=== PATIENT | male | born 1935 ===

== ENCOUNTER 2017-03-21 08:14 | Emergency (ER) | payer OTHER ==
[2017-03-21 08:28] VITALS: BP 140/59
--- NOTE | 2017-03-21 08:47 | UC ---
Bite Injury/Animal HPI - HPI Summary HPI Summary: 81 yo male was bitten by his sons Mo Louie last night about 12:30 AM on the left hand He was trying to undo a lease and the dog nipped at him he is on plavix and one of the bites continues to ooze he his right handed Td reportedly UTD - History of Current Complaint Chief Complaint: UCBiteInjury Stated Complaint: HAND LAC Time Seen by Provider: 03/21/17 08:31 Hx Obtained From: Patient, Workers Compensation Claims Adjuster - daughter in law Severity Currently: Mild Severity Initially: Moderate Pain Intensity: 2 Pain Scale Used: 0-10 Numeric Onset/Duration: Sudden Onset, Lasting Hours Type of Bite: Pet Has Animal Been Immunized?: Yes Character: Puncture, Full-Thickness, Abrasion/Laceration Aggravating Factor(s): Nothing Alleviating Factor(s): Nothing Associated Signs And Symptoms: Positive: Swelling Hx of Bite: Provoked by: - grabbing for collar Animal Available for Observation: Yes Animal Control Notified: Yes - Allergies/Home Medications Allergies/Adverse Reactions: Allergies Allergy/AdvReac Type Severity Reaction Status Date / Time No Known Allergies Allergy Verified 03/21/17 08:28 Home Medications: Home Medications Amoxicillin PO (*) [Amoxicillin 500 MG CAP*] 1,000 mg PO ONCE 03/21/17 [History Confirmed 03/21/17] Clopidogrel TAB* [Plavix TAB*] 75 mg PO DAILY 03/21/17 [History Confirmed ] Metoprolol Tartrate TAB* [Lopressor TAB*] 25 mg PO DAILY 03/21/17 [History Confirmed 03/21/17] PMH/Surg Hx/FS Hx/Imm Hx Previously Healthy: Yes Cardiovascular History: Cardiac Disease Cancer History: Colorectal Cancer - Surgical History Surgical History: Yes Surgery Procedure, Year, and Place: 2 cardiac stents, colon-most of Lrg intestine removed d/t tumor - Family History Known Family History: Positive: Cardiac Disease, Hypertension - Social History Alcohol Use: None Substance Use Type: None Smoking Status (MU): Never Smoked Tobacco - Immunization History Most Recent Tetanus Shot: unknown Review of Systems Constitutional: Negative Skin: Negative Eyes: Negative ENT: Negative Respiratory: Negative Cardiovascular: Negative Gastrointestinal: Negative Genitourinary: Negative Motor: Negative Neurovascular: Negative Musculoskeletal: Negative Neurological: Negative Psychological: Negative All Other Systems Reviewed And Are Negative: Yes Physical Exam Triage Information Reviewed: Yes Appearance: Well-Appearing, No Pain Distress, Well-Nourished, Thin Vital Signs: Initial Vital Signs Temp 98.2 F 03/21/17 08:16 Pulse 43 03/21/17 08:16 Resp 14 03/21/17 08:16 BP 140/59 03/21/17 08:16 Pulse Ox 100 03/21/17 08:16 Vital Signs Reviewed: Yes Eyes: Positive: Conjunctiva Clear ENT: Positive: Hearing grossly normal. Negative: Nasal congestion, Nasal drainage, Trismus, Muffled/hoarse voice Neck: Positive: Supple, Nontender Respiratory: Positive: Lungs clear, Normal breath sounds, No respiratory distress, No accessory muscle use Cardiovascular: Positive: RRR, No Murmur, Bradycardia Musculoskeletal: Positive: Other: - see image Skin Exam: Other - see image Bite Injury Course/Dx - Differential Dx/Diagnosis Provider Diagnoses: dog bite left hand Discharge - Discharge Plan Condition: Stable Disposition: HOME Prescriptions: Amoxicillin/Clavulanate TAB* [Augmentin TAB 875*] 875 mg PO BID #14 tab Patient Education Materials: Animal Bite (ED) Referrals: No Primary Care Phys,NOPCP [Primary Care Provider] - Additional Instructions: This should be rechecked tomorrow If unable to get in to see your MD return here gently clean 2-3 x day with soap and water apply thin film of bactroban oint dressing recheck for concerns of infection this needs to be followed closely as it will take a long time to heal and it is as risk of infection Images Hands: 1 - 2 pw's with dorsal hand edema/ecchymosis 2 - v shaped flap laceration/tear. 2 cm long, 1 -2 mm deep, 5 mm wide 3 - PW
--- NOTE | 2017-03-21 09:02 | RAD ---
Indication: Dog bite, left hand injury. 4 views of left hand demonstrates no evidence of fracture. No evidence of radiopaque foreign body is identified. No other bone or joint abnormality is noted. IMPRESSION: No fracture of the left hand is noted.
[2017-03-21] MEDS ORDERED: Mupirocin 2% OINT* TUBE TOPICAL ONE (09:20)
== END 2017-03-21 09:41 | disposition home or self-care (01) ==
LOC: UCEAST 08:14
DX: I51.9 Heart disease, unspecified (principal); S61.412A Laceration without foreign body of left hand, initial encounter; W54.0XXA Bitten by dog, initial encounter; Y93.89 Activity, other specified; Y92.009 Unspecified place in unspecified non-institutional (private) residence as the place of occurrence of the external cause; Y99.9 Unspecified external cause status
CPT/HCPCS: 99213; G0463

== ENCOUNTER 2018-10-07 15:48 | Emergency (ER) | payer OTHER ==
--- NOTE | 2018-10-07 17:04 | ED ---
Complex/Multi-Sys Presentation - HPI Summary HPI Summary: This pt is an 83 y/o [facility] after blood work showed low hemoglobin and hematocrit. Daughter in law reports pt had a routine visit with his PCP yesterday who noticed he was very pale and had blood drawn yesterday. Per daughter in law, pt sees his PCP every 3 months. Daughter in law notes pt has recently been sleeping more than usual, with low energy, and generalized weakness. Additionally pt has swelling in legs, has been constipated , and had blood in his stool described as a small amount. Pt has been eating normally, which is not much. Denies chest pain, vomiting, abd pain, SOB. Per daughter in law pt ambulates up and down the stairs without noticeable SOB. PMHx: colon CA s/p colon removal in 2000, cardiac stents x2. Pt is on plavix and metoprolol. Pt's PCP prescribed him on lasix yesterday. Pt lives with family. - History Of Current Complaint Chief Complaint: EDGeneral Time Seen by Provider: 10/07/18 16:54 Hx Obtained From: Patient, Family/Manager Play - daughter in law Onset/Duration: Lasting Days, Still Present Timing: Days Severity Currently: Moderate Location: Negative Aggravating Factor(s): nothing Alleviating Factor(s): nothing Associated Signs And Symptoms: Positive: Weakness - generalized, Edema - in LE, Other - POS: fatigue, low energy, pale. Negative: SOB, Chest Pain, Vomiting, Abdominal Pain, Fever - Allergies/Home Medications Allergies/Adverse Reactions: Allergies Allergy/AdvReac Type Severity Reaction Status Date / Time No Known Allergies Allergy Verified 10/07/18 15:53 Home Medications: Home Medications Furosemide 20 mg PO DAILY 10/07/18 [History Confirmed 10/07/18] PMH/Surg Hx/FS Hx/Imm Hx Endocrine/Hematology History: Denies: Hx Diabetes Cardiovascular History: Reports: Hx Coronary Artery Disease, Hx Hypertension - Cancer History Cancer Type, Location and Year: Colon CA - Surgical History Surgery Procedure, Year, and Place: 2 cardiac stents, colon-most of Lrg intestine removed d/t tumor Infectious Disease History: No Infectious Disease History: Denies: Traveled Outside the [place] in Last 30 Days - Family History Known Family History: Positive: Cardiac Disease, Hypertension - Social History Alcohol Use: None Substance Use Type: Reports: None Smoking Status (MU): Never Smoked Tobacco Review of Systems Positive: Fatigue. Negative: Fever Negative: Chest Pain Negative: Shortness Of Breath Gastrointestinal: Other - POS: blood in stool, constipation Negative: Vomiting, Nausea Positive: Edema - in LE Skin: Other - POS: pale Positive: Weakness - generalized All Other Systems Reviewed And Are Negative: Yes Physical Exam - Summary Physical Exam Summary: Appearance: Well-nourished, Pale elderly male. No acute distress Skin: Warm, dry, no obvious rash. Pale. Eyes: sclera anicteric, no conjunctival pallor ENT: mucous membranes moist, pharynx appears normal Neck: Supple, nontender Respiratory: Clear to auscultation, no signs of respiratory distress Cardiovascular: Normal S1, S2. No murmurs. Normal distal pulses in tibial and radial bilaterally. Abdomen: Soft, nontender, normal active bowel sounds present Musculoskeletal: Normal, Strength/ROM Intact Rectal Exam: limited exam as pt was very tight Neurological: A&Ox3, awake and alert, mentation is normal, speech is fluent and appropriate Psychiatric: affect is normal, does not appear anxious or depressed Triage Information Reviewed: Yes Vital Signs On Initial Exam: Initial Vitals Temp Pulse Resp BP Pulse Ox 97.9 F 85 16 139/84 100 10/07/18 15:49 10/07/18 15:49 10/07/18 15:49 10/07/18 15:49 10/07/18 15:49 Vital Signs Reviewed: Yes Diagnostics - Vital Signs Vital Signs Temp Pulse Resp BP Pulse Ox 10/07/18 16:45 70 20 137/59 100 10/07/18 15:49 97.9 F 85 16 139/84 100 - Laboratory Result Diagrams: 10/07/18 17:13 10/07/18 17:13 Lab Statement: Any lab studies that have been ordered have been reviewed, and results considered in the medical decision making process. Complex Multi-Symp Course/Dx Assessment/Plan: Pt is an 83 y/o male who presents to the ED after being referred by PCP after blood work showed low H&H. Pt saw PCP yesterday who noticed he was very pale and had blood drawn. Daughter in law notes pt has recently been sleeping more than usual, with low energy, and generalized weakness. Additionally pt has swelling in legs, has been constipated, and had blood in his stool described as a small amount. Labs from yesterday show hemoglobin of 6.1 and hematocrit of 20. Today's labs show hemoglobin of 5.7, hematocrit of 18. Pt has been arranged to have blood transfusion tomorrow at the transfusion center at noon. Family and pt are aware of the plan. Pt will be discharged home and is instructed to follow up with his PCP. Family and pt agree and understand. - Diagnoses Provider Diagnoses: Anemia - Physician Notifications Discussed Care Of Patient With: Lemuel Henriquez Time Discussed With Above Provider: 17:12 Instructed by Provider To: Other - Discussed pt care with Dr. Henriquez, PCP, who reports can be transfused tomorrow at the transfusion center. Discharge - Sign-Out/Discharge Documenting (check all that apply): Patient Departure - Discharge home Patient Received Moderate/Deep Sedation with Procedure: No - Discharge Plan Condition: Good Disposition: HOME Patient Education Materials: Anemia (ED) Referrals: Lemuel Henriquez MD [Primary Care Provider] - Additional Instructions: We have arranged to have your transfusion of blood done here at the infusion center within the hospital. You are scheduled for noon, so if you could come 15 minutes early to do the checkin process that would help. You can come to the main hospital entrance and tell the attendant that you are here for a transfusion at the infusion center and they will direct you. Your blood count did not change significantly from the one done yesterday. I also alerted your primary doctor as to our plans to have you transfused, you will still need to followup with them for further testing to find out why you became so anemic. - Billing Disposition and Condition Condition: GOOD Disposition: Home - Attestation Statements Document Initiated by Laila: Yes Documenting Scribe: Gale Francis Provider For Whom Laila is Documenting (Include Credential): Glenn Marte MD Scribe Attestation: I, Gale Francis, scribed for Glenn Marte MD on 10/07/18 at 1958. Scribe Documentation Reviewed: Yes Provider Attestation: The documentation as recorded by the Gale magallanes accurately reflects the service I personally performed and the decisions made by me, Glenn Marte MD Status of Scribe Document: Viewed
[2018-10-07 17:29] LABS: INR 0.96 (0.77-1.02)
[2018-10-07 17:34] LABS: Hematocrit 18 % (42-52); Hemoglobin 5.7 g/dl (14.0-18.0); Mean Corpuscular HGB Conc 31 g/dl (31-36); Mean Corpuscular Hemoglobin 22 pg (27-31); Mean Corpuscular Volume 71 fL (80-94); Platelet Count 258 10^3/ul (150-450); Red Blood Count 2.59 10^6/ul (4.00-5.40); Red Cell Distribution Width 17 % (10.5-15); White Blood Count 5.3 10^3/ul (3.5-10.8)
[2018-10-07 17:37] LABS: Albumin 3.5 g/dL (3.2-5.2); Albumin/Globulin Ratio 1.1 (1-3); BUN/Creatinine Ratio 11.9 (8-20); Calcium 8.6 mg/dL (8.6-10.3); EGFR Non-African American 33.1 (>60); Globulin 3.2 g/dL (2-4); Potassium 4.7 mmol/L (3.5-5.0); Total Bilirubin 0.3 mg/dL (0.2-1.0); Total Protein 6.7 g/dL (6.4-8.9)
[2018-10-07 18:07] LABS: ABS Basophils 0.1 10^3/ul (0-0.2); ABS Eosinophils 0.2 10^3/ul (0-0.6); ABS Lymphocytes 2.2 10^3/ul (1.0-4.8); ABS Monocytes 0.3 10^3/ul (0-0.8); ABS Neutrophils 2.5 10^3/ul (1.5-7.7); ABS Nucleated RBC 0 10^3/ul; Lymphocyte % 40.8 %; Nucleated Red Blood Cells % 0.2
[2018-10-07 18:21] VITALS: BP 132/47
== END 2018-10-07 18:23 | disposition home or self-care (01) ==
LOC: ED 15:48
DX: D64.9 Anemia, unspecified (principal); R60.0 Localized edema; K92.1 Melena; K59.00 Constipation, unspecified; I25.10 Atherosclerotic heart disease of native coronary artery without angina pectoris; I10 Essential (primary) hypertension; Z95.5 Presence of coronary angioplasty implant and graft; Z85.038 Personal history of other malignant neoplasm of large intestine
CPT/HCPCS: 36415; 80053; 82270; 85025; 85060; 85610; 86850; 86900; 86901; 86922; 99283; P9040

== ENCOUNTER 2018-11-19 18:00 | Emergency (ER) | payer OTHER ==
[2018-11-19 18:19] VITALS: BP 138/71
--- NOTE | 2018-11-19 19:13 | UC ---
Minor Trauma HPI - HPI Summary HPI Summary: Mr. Bennett slipped on the wet grass this AM wearing his slippers and sustained an abrasion to his left knee, a skin tear to his left forearm and a bruise to his left forehead at about 11:30 this AM. He did not lose consciousness or get a headache. He is on a blood thinner. He is brought in by his daughter concerned about the skin tear. - History of Current Complaint Chief Complaint: UCGeneralIllness Stated Complaint: ARM INJURY Time Seen by Provider: 11/19/18 19:00 Hx Obtained From: Patient, Family/Flight Teacher Onset/Duration: Sudden Onset Onset Of Pain: Immediate Severity Initially: Mild Severity Currently: Mild Pain Intensity: 1 Mechanism Of Injury: Fall From A Standing Position Aggravating Factor(s): Nothing Alleviating Factor(s): Nothing Associated Signs And Symptoms: Negative: Loss Of Consciousness - Allergies/Home Medications Allergies/Adverse Reactions: Allergies Allergy/AdvReac Type Severity Reaction Status Date / Time No Known Allergies Allergy Verified 11/19/18 18:19 PMH/Surg Hx/FS Hx/Imm Hx Previously Healthy: Yes - Surgical History Surgical History: Yes Surgery Procedure, Year, and Place: 2 cardiac stents, colon-most of Lrg intestine removed d/t tumor - Family History Known Family History: Positive: Cardiac Disease, Hypertension - Social History Alcohol Use: None Substance Use Type: None Smoking Status (MU): Never Smoked Tobacco - Immunization History Most Recent Tetanus Shot: unknown Review of Systems All Other Systems Reviewed And Are Negative: Yes Physical Exam - Summary Physical Exam Summary: He was nontoxic in appearance with stable vitals/ Triage Information Reviewed: Yes Appearance: Well-Appearing, No Pain Distress Vital Signs: Initial Vital Signs Temp 98.9 F 11/19/18 18:12 Pulse 81 11/19/18 18:12 Resp 18 11/19/18 18:12 BP 138/71 11/19/18 18:12 Pulse Ox 100 11/19/18 18:12 Vital Signs Reviewed: Yes Eye Exam: Normal ENT Exam: Other - small bruise to left forehead Neck exam: Normal Respiratory: Positive: Chest non-tender, Lungs clear Cardiovascular: Positive: RRR Abdominal Exam: Normal Abdomen Description: Positive: Nontender Musculoskeletal Exam: Other - abrasion to left knee without much swelling or tenderness and no decrease in ROM Musculoskeletal: Positive: Other: - Left proximal forearm with a skin tear of 4 cm by 4cm. Neurological Exam: Normal Minor Trauma Course/Dx - Course Course Of Treatment: The dkin of his forearm tear was debrided by nursing staff and he has no evidence for any serious injury. - Differential Dx/Diagnosis Provider Diagnosis: Head injury, Skin tear of forearm without complication, Abrasion hip/leg Discharge - Sign-Out/Discharge Documenting (check all that apply): Patient Departure All imaging exams completed and their final reports reviewed: Yes - Discharge Plan Condition: Stable Disposition: HOME Patient Education Materials: Head Injury (ED), Skin Tear (ED) Referrals: Izzy Colorado MD [Primary Care Provider] - - Billing Disposition and Condition Condition: STABLE Disposition: Home
== END 2018-11-19 19:45 | disposition home or self-care (01) ==
LOC: UCEAST 18:00
DX: S09.90XA Unspecified injury of head, initial encounter (principal); S51.812A Laceration without foreign body of left forearm, initial encounter; S80.212A Abrasion, left knee, initial encounter; W01.0XXA Fall on same level from slipping, tripping and stumbling without subsequent striking against object, initial encounter; Y93.01 Activity, walking, marching and hiking; Y92.89 Other specified places as the place of occurrence of the external cause; Z79.01 Long term (current) use of anticoagulants; Z95.5 Presence of coronary angioplasty implant and graft
CPT/HCPCS: 99212; G0463

== ENCOUNTER 2020-03-05 13:30 | Observation (INO) ==
[2020-03-05 14:46] LABS: ABS Eosinophils 0.2 10^3/ul (0-0.6); ABS Lymphocytes 1.7 10^3/ul (1.0-4.8); ABS Monocytes 0.3 10^3/ul (0-0.8); Eosinophil % 5.5 %; Hematocrit 24 % (42-52); Hemoglobin 8.1 g/dL (14.0-18.0); Lymphocyte % 46.9 %; Mean Corpuscular HGB Conc 34 g/dL (31-36); Mean Corpuscular Hemoglobin 28 pg (27-31); Mean Corpuscular Volume 84 fL (80-94); Mean Platelet Volume 6.7 fL (7.4-10.4); Nucleated Red Blood Cells % 0.1; Platelet Count 406 10^3/uL (150-450); Red Blood Count 2.88 10^6 /uL (4.18-5.48); Red Cell Distribution Width 15 % (10-15); White Blood Count 3.7 10^3/uL (3.5-10.8)
[2020-03-05 14:57] LABS: INR 1.06 (0.82-1.09)
[2020-03-05 15:03] LABS: Albumin 2.9 g/dL (3.2-5.2); Albumin/Globulin Ratio 0.8 (1-3); BUN/Creatinine Ratio 9.8 (8-20); Calcium 8.2 mg/dL (8.6-10.3); EGFR African American 56.7 (>60); EGFR Non-African American 46.9 (>60); Globulin 3.5 g/dL (2-4); Potassium 3.6 mmol/L (3.5-5.0); Total Bilirubin 0.5 mg/dL (0.2-1.0); Total Protein 6.4 g/dL (6.4-8.9)
[2020-03-05] MEDS ORDERED: NS 0.9% 1000 ml BAG 1,000 ML IV ONE (15:13)
[2020-03-05] MEDS ORDERED: NS 0.9% 1000 ml BAG 1,000 ML IV SCH (16:00)
[2020-03-05] MEDS: Heparin 5000 UNITS/ML VIAL(*) 1 ml vial SUBCUT SCH (22:15)
[2020-03-06] MEDS: Heparin 5000 UNITS/ML VIAL(*) 1 ml vial SUBCUT SCH ×4 (05:44→21:22)
[2020-03-06] MEDS: Multivitamins/Minerals TAB PO SCH (09:50)
[2020-03-06 09:51] LABS: Calcium 7.5 mg/dL (8.6-10.3)
[2020-03-06 09:57] LABS: BUN/Creatinine Ratio 10.3 (8-20); EGFR African American 72.2 (>60); EGFR Non-African American 59.7 (>60)
[2020-03-06 10:09] LABS: Potassium 4.3 mmol/L (3.5-5.0)
[2020-03-06 12:55] LABS: ABS Eosinophils 0.2 10^3/ul (0-0.6); ABS Monocytes 0.4 10^3/ul (0-0.8); Eosinophil % 4.6 %; Hematocrit 25 % (42-52); Hemoglobin 8.3 g/dL (14.0-18.0); Lymphocyte % 46.8 %; Mean Corpuscular HGB Conc 33 g/dL (31-36); Mean Corpuscular Hemoglobin 28 pg (27-31); Mean Corpuscular Volume 84 fL (80-94); Mean Platelet Volume 6.7 fL (7.4-10.4); Nucleated Red Blood Cells % 0.3; Platelet Count 354 10^3/uL (150-450); Red Blood Count 2.97 10^6 /uL (4.18-5.48); Red Cell Distribution Width 16 % (10-15); White Blood Count 4.2 10^3/uL (3.5-10.8)
[2020-03-06] MEDS: NS 0.9% 1000 ml BAG 1,000 ML IV SCH ×2 (13:48→21:21)
[2020-03-06 18:27] LABS: CO2 Carbon Dioxide 15 mmol/L (22-32); Calcium 7.6 mg/dL (8.6-10.3); Chloride 98 mmol/L (101-111); Sodium 122 mmol/L (135-145)
[2020-03-06 18:32] LABS: BUN/Creatinine Ratio 10.2 (8-20); Blood Urea Nitrogen 11 mg/dL (6-24); EGFR African American 78.4 (>60); EGFR Non-African American 64.8 (>60); Glucose 96 mg/dL (70-100)
[2020-03-06 19:13] LABS: Anion Gap 9 mmol/L (2-11)
[2020-03-07] MEDS: Heparin 5000 UNITS/ML VIAL(*) 1 ml vial SUBCUT SCH (05:13)
[2020-03-07] MEDS: Multivitamins/Minerals TAB PO SCH ×2 (10:46→11:01)
[2020-03-07 10:49] VITALS: BP 146/93
== END 2020-03-07 10:21 | disposition home or self-care (01) ==
LOC: ED 13:30 → MED 13:30
PROVIDERS: ADMIT Internal Medicine; ATTEND Internal Medicine